=== PATIENT | male | born 1990 | race Caucasian/White ===

== ENCOUNTER 2019-05-05 07:30 | Emergency (ER) | payer BC ==
[~2019-05-05] VITALS: Ht 177.8 cm; Wt 69.5 kg
[2019-05-05 07:42] VITALS: Ht 177.8 cm; Wt 69.5 kg
[2019-05-05 08:37] LABS: PLATELET COUNT 231 x10^3mcL (130-400)
[2019-05-05 08:38] LABS: BASOPHIL % 0 % (0-2)
[2019-05-05 08:57] LABS: CALCIUM 9.1 mg/dL (8.5-10.1); CARBON DIOXIDE 30.7 mmol/L (21-32); CHLORIDE SERUM 106 mmol/L (98-107); GFR1 > 60 mL/min; GLUCOSE SERUM 93 mg/dL (74-106); POTASSIUM SERUM 4.9 mmol/L (3.5-5.1); SODIUM SERUM 142 mmol/L (136-145)
[2019-05-05 09:02] LABS: ALBUMIN 3.9 g/dL (3.4-5.0); ALKALINE PHOSPHATASE 66 U/L (46-116); ALT/SGPT 22 U/L (16-63); AST/SGOT 16 U/L (15-37); BILIRUBIN TOTAL 1.8 mg/dL (0.20-1.00); LIPASE 69 IU/L (73-393); TOTAL PROTEIN, SERUM 7.7 g/dL (6.4-8.2)
[2019-05-05 10:59] VITALS: BP 135/73
== END 2019-05-05 10:59 | disposition home or self-care (01) ==
LOC: ED 07:30
PROVIDERS: Emergency Medicine
DX: K29.00 Acute gastritis without bleeding (principal)
CPT/HCPCS: Q0092